=== PATIENT | female | born 1995 | race Caucasian/White ===

== ENCOUNTER 2017-02-04 17:46 | Emergency (ER) | payer OTHER ==
[~2017-02-04] VITALS: Ht 167.6 cm; Wt 69.0 kg
[2017-02-04 17:50] VITALS: Ht 167.6 cm; Wt 69.0 kg
[2017-02-04] MEDS ORDERED: KETOROLAC 30 MG INJ IM STA (18:40)
[2017-02-04 20:22] LABS: ADD UMIC NO; URINE BILIRUBIN (Dip) NEGATIVE (NEGATIVE); URINE BLOOD (Dip) NEGATIVE (NEGATIVE); URINE COLOR LT. YELLOW (YELLOW); URINE GLUCOSE (Dip) NEGATIVE (NEGATIVE); URINE KETONES (Dip) NEGATIVE (NEGATIVE); URINE LEUKOCYTE ESTERASE (Dip) NEGATIVE (NEGATIVE); URINE NITRITE (Dip) NEGATIVE (NEGATIVE); URINE TOTAL PROTEIN (Dip) NEGATIVE (NEGATIVE); URINE UROBILINOGEN (Dip) 0.2 E.U./dL (0.1-1.0)
[2017-02-04] MEDS ORDERED: IBUP400T22 PO (20:45)
[2017-02-04] MEDS ORDERED: CYCL-319 PO (20:47)
[2017-02-04 21:04] VITALS: BP 130/81; PULSE 18; RESP 18; TEMP 98.5
--- NOTE | 2017-02-04 23:42 | ERD ---
ER Documentation Chief Complaint Date/Time DATE: 02/04/17 TIME: 23:40 Chief Complaint LEFT LOWER BACK PAIN. DENIES ANY TRAUMA. HPI This is a 21-year-old female with a history of hypothyroidism presenting to the emergency department complaining of left lumbar back pain for the past 3 days. Patient states the pain is dull rating it 8 out of 10. Patient states that last week she did have symptoms of painful urination however it resolved after couple days of Pyridium. She denies any urinary symptoms, hematuria today. Patient has not taking any medications today. She denies any saddle anesthesia , bladder or bowel incontinence. ROS All systems reviewed and are negative except as per history of present illness. Medications Home Meds Active Scripts Cyclobenzaprine Hcl* (Cyclobenzaprine Hcl*) 10 Mg Tablet, 10 MG PO TID, #15 TAB Prov:ALYSSIA GAITAN PA-C 02/04/17 Ibuprofen* (Ibuprofen*) 400 Mg Tablet, 400 MG PO Q6H Y for PAIN, #30 TAB Prov:ALYSSIA GAITAN PA-C 02/04/17 PMhx/Soc Medical and Surgical Hx: pt denies Medical Hx, pt denies Surgical Hx Hx Alcohol Use: No Hx Substance Use: No Hx Tobacco Use: No Smoking Status: Never smoker Physical Exam Vitals Vital Signs Date Time Temp Pulse Resp B/P Pulse Ox O2 Delivery O2 Flow Rate FiO2 02/04/17 21:04 98.5 18 18 130/81 98 Room Air 02/04/17 17:50 99.8 75 19 156/75 100 Physical Exam GENERAL: WD/WN, in no apparent distress, non-toxic appearing HENT: NC/AT EYES: Conjunctiva normal NECK: Supple PULM: Normal labored breathing CV: Good capillary refill GI: Non-distended, no guarding BACK: no deformities noted, normal spinal curvature, TTP on lumbar region, non- tender on spine midline, EXT: No clubbing, cyanosis, or edema NEURO: Moves on all fours, sensation intact, normal gait SKIN: intact PSYCH: Normal mood Results 24 hrs Laboratory Tests Test 02/04/17 19:54 Urine Color LT. YELLOW Urine Clarity CLEAR Urine pH 5.5 Urine Specific [place] >=1.030 Urine Ketones NEGATIVE Urine Nitrite NEGATIVE Urine Bilirubin NEGATIVE Urine Urobilinogen 0.2 E.U./dL Urine Leukocyte Esterase NEGATIVE Urine Hemoglobin NEGATIVE Urine Glucose NEGATIVE% Urine Total Protein NEGATIVE Current Medications Medications (Trade) Dose Ordered Sig/Tunde Route PRN Reason Start Time Stop Time Status Last Admin Dose Admin Ketorolac Tromethamine (Toradol) 30 mg ONCE STAT IM 02/04/17 18:40 02/04/17 18:41 DC 02/04/17 19:59 Procedures/MDM 21-year-old female presents to the ER with lumbar back pain likely due to a strain. Low suspicion for spinal abscess, vertebral fracture, cauda equina syndrome, spinal stenosis due to physical examination. Urine analysis did not show any evidence of urinary tract infection or hemoglobin. Urine test negative. Patient is neurovascularly intact. Prescriptions ibuprofen was given to patient , discussed to return to the ED if not improving as expected or follow-up with a primary care physician. Patient understood and agreed with this plan. Stable discharge home Departure Diagnosis: Primary Impression: Back pain Condition: Stable Patient Instructions: Back Pain (Acute Or Chronic) Referrals: (Family) KAREEM HOPKINS (PCP) Additional Instructions: FOLLOW UP WITH YOUR PRIMARY CARE PHYSICIAN TOMORROW.Return to this facility if you are not improving as expected. Take all medicines as directed. Return to this facility if you are not improving as expected. ALYSSIA GAITAN PA-C February 04, 2017 23:42
== END 2017-02-04 21:04 | disposition home or self-care (01) ==
LOC: FTE 17:46
DX: M54.5 Low back pain (principal)
CPT/HCPCS: 81003; 87591; 96372; J1885; Z7502

== ENCOUNTER → 2019-01-20 | Emergency (ER) | payer OTHER ==
[~2019-01-20] VITALS: Ht 167.6 cm; Wt 57.8 kg
[~2019-01-20] MED LIST: CYCL10TA7 PO; DICY10CA40 PO; IBUP-1541 PO; ONDANSETRON 4 MG INJ IV STA; SOD CHLORIDE 0.9% 1,000 ML IV STA; morphine 4 MG/ML VIAL IV STA
[2019-01-20 22:10] VITALS: Ht 167.6 cm; Wt 57.8 kg
--- NOTE | 2019-01-21 02:16 | ERD ---
ER Documentation Chief Complaint Chief Complaint C/O MEDIAL AP SINCE LAST NIGHT HPI 23-year-old female presents with mid abdominal pain since last night. No nausea vomiting or diarrhea. No urinary symptoms. No change with food. No alleviating or exacerbating factors. Denies possibility of . ROS All systems reviewed and are negative except as per history of present illness. Medications Home Meds Active Scripts Dicyclomine HCl (Dicyclomine HCl) 10 Mg Capsule, 10 MG PO TID PRN for ABDOMINAL CRAMPING, #20 CAP Prov:RINKU ROSARIO PA-C 01/21/19 Cyclobenzaprine Hcl* (Cyclobenzaprine Hcl*) 10 Mg Tablet, 10 MG PO TID, #15 TAB Prov:ALYSSIA GAITAN PA-C 02/04/17 Ibuprofen* (Ibuprofen*) 400 Mg Tablet, 400 MG PO Q6H PRN for PAIN, #30 TAB Prov:ALYSSIA GAITAN PA-C 02/04/17 Allergies Allergies: Coded Allergies: No Known Allergy (Unverified , 01/21/19) PMhx/Soc Medical and Surgical Hx: pt denies Surgical Hx Hx Miscellaneous Medical Probl: Yes (hyperthyroid) Hx Alcohol Use: No Hx Substance Use: No Hx Tobacco Use: No Smoking Status: Never smoker Physical Exam Vitals Vital Signs Date Temp Pulse Resp B/P (MAP) Pulse Ox O2 O2 Flow FiO2 Time Delivery Rate 01/20/19 99.8 109 19 151/82 99 22:10 (105) Physical Exam INITIAL VITAL SIGNS: Reviewed by me GENERAL: Awake, alert and oriented x 4, well appearing, nontoxic, speaking in full sentences. No acute distress HEAD: Atraumatic RESPIRATORY: Clear to auscultation bilaterally. Symmetric chest wall rise. No wheezing or rales. No accessory muscle use. CV: Regular rate and rhythm. No murmurs, rubs, or gallops. ABDOMEN: Soft, non-distended. Diffuse mid abdominal tenderness . Negative Cumming. Negative McBurneys point tenderness. No CVA tenderness bilaterally. No guarding. No rebound. Result Diagram: 01/21/19 0039 01/21/19 0039 Results 24 hrs Laboratory Tests Test 01/21/19 00:34 01/21/19 00:39 POC Beta HCG, Qualitative NEGATIVE White Blood Count 8.5 10^3/ul Red Blood Count 4.66 10^6/ul Hemoglobin 11.9 g/dl Hematocrit 36.9 % Mean Corpuscular Volume 79.2 fl Mean Corpuscular Hemoglobin 25.5 pg Mean Corpuscular Hemoglobin Concent 32.2 g/dl Red Cell Distribution Width 12.7 % Platelet Count 279 10^3/UL Mean Platelet Volume 10.3 fl Immature Granulocytes % 0.200 % Neutrophils % 78.0 % Lymphocytes % 14.2 % Monocytes % 7.5 % Eosinophils % 0.0 % Basophils % 0.1 % Nucleated Red Blood Cells % 0.0 /100WBC Immature Granulocytes # 0.020 10^3/ul Neutrophils # 6.7 10^3/ul Lymphocytes # 1.2 10^3/ul Monocytes # 0.6 10^3/ul Eosinophils # 0.0 10^3/ul Basophils # 0.0 10^3/ul Nucleated Red Blood Cells # 0.0 10^3/ul Urine Color YELLOW Urine Clarity CLOUDY Urine pH 8.0 Urine Specific [place] 1.018 Urine Ketones TRACE mg/dL Urine Nitrite NEGATIVE mg/dL Urine Bilirubin NEGATIVE mg/dL Urine Urobilinogen 1+ mg/dL Urine Leukocyte Esterase NEGATIVE Stella/ul Urine Microscopic RBC 2 /HPF Urine Microscopic WBC 0 /HPF Urine Amorphous Crystals MODERATE /HPF Urine Bacteria FEW /HPF Urine Mucus FEW /HPF Urine Hemoglobin NEGATIVE mg/dL Urine Glucose NEGATIVE mg/dL Urine Total Protein NEGATIVE mg/dl Sodium Level 138 mmol/L Potassium Level 3.7 mmol/L Chloride Level 104 mmol/L Carbon Dioxide Level 26 mmol/L Anion Gap 8 Blood Urea Nitrogen 8 mg/dl Creatinine 0.30 mg/dl Est Glomerular Filtrat Rate mL/min > 60 mL/min Glucose Level 128 mg/dl Calcium Level 9.4 mg/dl Total Bilirubin 0.6 mg/dl Direct Bilirubin 0.00 mg/dl Indirect Bilirubin 0.6 mg/dl Aspartate Amino Transf (AST/SGOT) 30 IU/L Alanine Aminotransferase (ALT/SGPT) 57 IU/L Alkaline Phosphatase 127 IU/L Total Protein 7.0 g/dl Albumin 3.8 g/dl Globulin 3.20 g/dl Albumin/Globulin Ratio 1.18 Lipase 35 U/L Current Medications Medications Dose Sig/Tunde Start Time Status Last (Trade) Ordered Route PRN Stop Time Admin Dose Reason Admin Sodium 1,000 ml @ Q1H STAT 01/21/19 DC 01/21/19 Chloride 1,000 mls/hr IV 00:13 01/21/19 00:46 01:12 Morphine 4 mg ONCE STAT 01/21/19 DC 01/21/19 Sulfate IV 00:13 01/21/19 00:46 (morphine) 00:14 Ondansetron 4 mg ONCE STAT 01/21/19 DC 01/21/19 HCl (Zofran IV 00:13 01/21/19 00:46 Inj) 00:14 Procedures/MDM The differential diagnosis includes but is not limited to appendicitis, cholelithiasis, cholecystitis, pancreatitis, hepatitis, gastritis, peptic ulcer disease, bowel obstruction, diverticulitis, renal disease including stones, torsion, AAA, pyelonephritis, and others. Laboratory analysis shows no evidence of acute emergent abnormality. No evidence of significant leukocytosis suggesting systemic infection or severe anemia. No evidence of acute renal or liver failure, no evidence of severe alkalosis or acidosis. CT is negative. Mehrdad robin discharged with copies of everything that she can follow-up with primary care. Prescription for Bentyl given. Patient counseled regarding my diagnostic impression and care plan. Prior to discharge all questions answered. Pt agrees with treatment plan and understands strict return precautions. Pt is instructed to follow up with primary care provider within 24-48 hours. Precautionary instructions provided including instructions to return to the ER if not improving or for any worsening or changing symptoms or concerns. Departure Diagnosis: Primary Impression: Abdominal pain Condition: Stable Patient Instructions: Abdominal Pain Additional Instructions: Call your primary care doctor TOMORROW for an appointment during the next 1-2 days.See the doctor sooner or return here if your condition worsens before your appointment time. RINKU ROSARIO PA-C January 21, 2019 02:16
[2019-01-21 02:25] VITALS: BP 150/83; PULSE 85; RESP 19
== END | disposition home or self-care (01) ==
LOC: FTE 22:04
DX: R10.9 Unspecified abdominal pain (principal)
CPT/HCPCS: 36415; Z7502; 74176; 80053; 81001; 81025; 83690; 85025; 96374; 96375; J2270; J2405; J7030